=== PATIENT | male | born 1990 | race Caucasian/White ===

== ENCOUNTER 2025-03-13 04:40 | Emergency (ER) | payer BC ==
[2025-03-13] MEDS: Sodium Chloride 0.9% 10 ML Syringe FLUSH PRN (05:08)
[2025-03-13] MEDS: Ketorolac 30 MG/ML SDV IVPUSH ONE (05:12)
[2025-03-13 05:21] LABS: BASOPHILS ABSOLUTE AUTO 0.04 10^3/uL (0.00-0.10); BASOPHILS PERCENT AUTO 0.5 % (0.0-1.0); EOSINOPHILS ABSOLUTE AUTO 0.20 10^3/uL (0.10-0.30); EOSINOPHILS PERCENT AUTO 2.6 % (1.0-3.0); IMMATURE GRAN ABSOLUTE AUTO 0.02 10^3/uL (0.00-0.04); IMMATURE GRAN PERCENT AUTO 0.3 % (0.0-0.4); LYMPHOCYTES ABSOLUTE AUTO 1.73 10^3/uL (1.00-4.00); LYMPHOCYTES PERCENT AUTO 22.1 % (20.0-40.0); MEAN PLATELET VOLUME 9.5 fL (7.4-10.4); MONOCYTES ABSOLUTE AUTO 1.20 10^3/uL (0.10-0.80); MONOCYTES PERCENT AUTO 15.3 % (2.0-8.0); NEUTROPHILS ABSOLUTE AUTO 4.65 10^3/uL (2.50-7.00); NEUTROPHILS PERCENT AUTO 59.2 % (50.0-70.0); PLATELET COUNT,PLT 291 10^3/uL (150-400); RED BLOOD CELL COUNT 5.24 10^6/uL (4.50-6.00); RED CELL DISTRIBUTION WIDTH 12.7 % (11.5-14.5); WHITE BLOOD CELL COUNT,WBC 7.84 10^3/uL (5.00-10.00)
[2025-03-13 05:25] LABS: APPEARANCE,URINE CLEAR (CLEAR); GLUCOSE,URINE NEGATIVE (NEGATIVE); OCCULT BLOOD,URINE NEGATIVE (NEGATIVE)
[2025-03-13 05:40] LABS: ALANINE AMINOTRANSFERASE,ALT 30.0 U/L (14-63); ASPARTATE AMNIOTRANSFERASE,AST 17.0 U/L (15-37); BILIRUBIN TOTAL 0.7 mg/dL (0.2-1.0); BLOOD UREA NITROGEN,BUN 19.0 mg/dL (7-18); CARBON DIOXIDE,CO2 22.8 mmol/L (21.0-32.0); CHLORIDE,CL 105.0 mmol/L (98-107); CREATININE 0.86 mg/dL (0.51-1.17); EST CRCL DRUG DOSING (CG) 128.91 mL/min; ESTIMATED GFR 117.0 mL/min (>=60); GLUCOSE RANDOM 100.0 mg/dL (70-140); POTASSIUM,K 4.4 mmol/L (3.5-5.1); PROTEIN TOTAL,TP 7.3 g/dL (6.4-8.2); SODIUM,NA 139.0 mmol/L (136-145)
== END 2025-03-13 08:22 | disposition home or self-care (01) ==
LOC: KA.ED 04:45
DX: R10.9 Unspecified abdominal pain (principal)
CPT/HCPCS: 74176; 80053; 81003; 85025; 96361; 96365; 96375; 99284-25; J1885; J2800; J7030